=== PATIENT | male | born 1965 | race Hispanic/Latino ===

== ENCOUNTER 2020-09-05 08:26 | Emergency (ER) | payer BC, OTHER ==
[2020-09-05] MEDS ORDERED: DEXAMETHASONE SOD PHOSPHATE 10MG/ML 1ML VIAL ONE (08:36)
[2020-09-05] MEDS ORDERED: CLONIDINE HCL 0.1 MG TABLET ONE (08:36)
[2020-09-05 08:54] LABS: BASOPHILS % (AUTO) 0.5 % (0.0-5.0); EOSINOPHILS % (AUTO) 0.9 % (0.0-8.0); HEMATOCRIT 50.9 % (42-54); LYMPHOCYTES % (AUTO) 25.2 % (21.0-51.0); MEAN CORPUSCULAR HGB CONC 35.8 g/dL (32.0-36.0); MEAN CORPUSCULAR VOLUME 92.4 fL (79-99); MONOCYTES % (AUTO) 6.4 % (3.0-13.0); NEUTROPHILS % (AUTO) 66.5 % (40.0-77.0); PLATELET COUNT (AUTO) 253 K/uL (130-400); RED BLOOD CELL COUNT(AUTO) 5.51 MIL/uL (4.50-6.20); RED CELL DISTRIBUTION WIDTH 12.3 % (11.0-15.5); WHITE BLOOD COUNT (AUTO) 8.1 K/uL (4.8-10.8)
[2020-09-05 09:04] LABS: POTASSIUM 4.1 mmol/L (3.5-5.1)
[2020-09-05 09:08] LABS: ALBUMIN 4.5 g/dL (3.5-5.0); BILIRUBIN,TOTAL 0.8 mg/dL (0.2-1.0); TOTAL PROTEIN, SERUM 8.5 g/dL (6.0-8.3)
[2020-09-05] MEDS ORDERED: DiphenhydrAMINE HCL 50 MG/ML VIAL ONE (10:47)
[2020-09-05] MEDS ORDERED: PROCHLORPERAZINE EDISYLATE 10 MG/2 ML VIAL ONE (10:48)
== END 2020-09-05 11:26 | disposition home or self-care (01) ==
LOC: EDH 08:26
DX: G43.909 Migraine, unspecified, not intractable, without status migrainosus (principal); D45 Polycythemia vera; I15.9 Secondary hypertension, unspecified; Z71.6 Tobacco abuse counseling
CPT/HCPCS: 36415; 70450; 80053; 85025; 96374; 96375; 99284; J0780; J1100; J1200